=== PATIENT | female | born 1950 | race Caucasian/White ===

== ENCOUNTER → 2017-12-05 | Outpatient (CLI) | payer OTHER, MEDICARE, MEDICAID ==
[2014-09-10 08:54] VITALS: BMI 53.6
[~2017-12-05] MED LIST: ALB18R INH; ALPR3TAB PO; AZIT-1 PO; COL625PT PO; CYCL10TA29 PO; DONE10TA38 PO; FLUO40CA67 PO; GABA-549 PO; HYDR-317 PO; HYDR-385 PO; HYDR-4309 PO; LORA-629 PO; LORA-788 PO; LOSA100T67 PO; LOSA50TA72 PO; MEMA10TA18 PO; OMEP40CA48 PO; OXYGENHOME INH; SIMV-49 PO; SIMV5TAB60 PO; [UNRECOGNIZED DRUG - OTHER]
== END ==
LOC: LAB 10:41
PROVIDERS: ATTEND Nurse Practitioner Psychiatric/Mental Health
DX: E03.9 Hypothyroidism, unspecified (principal); I10 Essential (primary) hypertension
CPT/HCPCS: 36415; 82040; 82247; 82310; 82374; 82435; 82565; 82947; 84075; 84132; 84155; 84295; 84443; 84450; 84460; 84520; 85027

== ENCOUNTER 2018-02-15 00:52 | Observation (INO) | payer MEDICARE, OTHER, MEDICAID ==
[2014-09-10 08:54] VITALS: Ht 154.9 cm; Wt 118.8 kg
[~2018-02-15] VITALS: Ht 154.9 cm; Wt 118.8 kg
[2018-02-15] VITALS (9 sets, daily range): BP systolic 112–129; BP diastolic 52–104
--- NOTE | 2018-02-15 08:58 | EKG ---
FACILITY: [facility] PATIENT NAME: JAMES MOODY : [id number] MR: [id number] V: [id number] EXAM DATE: ORDERING PHYSICIAN: TONJA LLANOS TECHNOLOGIST: PARTHA Koenig Reason : PRE-OP Blood Pressure : / mmHG Vent. Rate : 084 BPM Atrial Rate : 084 BPM P-R Int : 150 ms QRS Dur : 070 ms QT Int : 380 ms P-R-T Axes : 054 051 052 degrees QTc Int : 449 ms Normal sinus rhythm Nonspecific T wave abnormality Abnormal ECG When compared with ECG of 09-SEP-2014 17:42, No significant change was found Confirmed by ANJEL LORENZ ([id number]) on 02/15/2018 7:01:29 PM Referred By: CANDI Confirmed By:ANJEL LORENZ
[2018-02-15] MEDS ORDERED: OXYMETAZOLINE SPRAY 15 ML BTL ONE (09:27)
[2018-02-15] MEDS ORDERED: NS(*) 0.9% 10 ML VIAL 10 ML ONE (09:27)
[2018-02-15] MEDS ORDERED: MIDAZOLAM 2 MG/2 ML VIAL IVP PRN (09:40)
[2018-02-15] MEDS ORDERED: LIDOCAINE/SOD BICARB 8.4% SYR ID ONE (09:40)
[2018-02-15] MEDS ORDERED: NORMOSOL R SOLN(*) 1000 ML BAG 1,000 ML IV PRN (09:40)
[2018-02-15] MEDS ORDERED: ROCURONIUM BROM 10 MG/ML 10 ML ONE (09:43)
[2018-02-15] MEDS ORDERED: ONDANSETRON 4 MG/2 ML VIAL ONE (09:43)
[2018-02-15] MEDS ORDERED: PROPOFOL EMUL(*) 10MG/ML 20 ML 20 ML ONE (09:43)
[2018-02-15] MEDS ORDERED: LIDOCAINE MPF 1% 5 ML VIAL ONE (09:43)
[2018-02-15] MEDS ORDERED: DEXAMETHASONE SOD PHOS 10MG/ML ONE (09:43)
[2018-02-15] MEDS ORDERED: HYDROmorphone HCL 2 MG/ML SDV ONE (09:44)
[2018-02-15] MEDS ORDERED: NS 0.9% 20 ML SDV 20 ML ONE (09:44)
[2018-02-15] MEDS ORDERED: SUGAMMADEX SOD 500 MG/5 ML SDV ONE (10:18)
[2018-02-15] MEDS ORDERED: KETAMINE HCL 200 MG/20 ML MDV ONE (10:18)
[2018-02-15] MEDS ORDERED: KETOROLAC 30 MG/ML VIAL ONE (10:45)
[2018-02-15] MEDS ORDERED: APAP/HYDROCODONE 325/5 TAB ONE (11:04)
--- NOTE | 2018-02-15 15:01 | RADIOLOGY IMAGING REPORT ---
FACILITY: [facility] PATIENT NAME: Vandana Boogie : 1950 MR: [id number] V: [id number] EXAM DATE: ORDERING PHYSICIAN: SENTHIL CHRISTOPHER TECHNOLOGIST: Location: Patient: Vandana Boogie : 1950 Visit/Account:[id number] Date of Sevice: 02/15/2018 Exam type: CHEST PA AND LAT History: Postop, shortness of breath Comparison: The 2015. Findings: The lungs are free of acute effusions infiltrates or edema. The cardiac silhouette is upper limits o f normal in size. There is a moderate hiatal hernia in the retrocardiac space. 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 No acute cardiopulmonary process seen Moderate hiatal hernia Report Dictated By: Steffanie Braun MD at 02/15/2018 2:54 PM Report E-Signed By: Steffanie Braun MD at 02/15/2018 2:57 PM WSN:[email or web address]
[2018-02-15] MEDS ORDERED: CYCLOBENZAPRINE HCL 10 MG TAB PO PRN (16:40)
[2018-02-15] MEDS: GABAPENTIN 300 MG CAP PO SCH ×2 (17:03→21:26)
[2018-02-15] MEDS: APAP/HYDROCODONE 325/5 TAB PO PRN (17:03)
--- NOTE | 2018-02-15 17:10 | History & Physical ---
History of Present Illness Chief Complaint hypoxia History of Present Illness She was admitted s/p vocal cord surgery. She has a history of THEE, HTN, GERD, and depression. She was found to be hypoxic after surgery. Dr. Nguyễn would like her admitted overnight to the hospitalist service to watch her oxygenation. History Problems: (1) Hypertension Status: Chronic (2) THEE (obstructive sleep apnea) Status: Chronic (3) GERD (gastroesophageal reflux disease) Status: Chronic (4) Depression Status: Chronic (5) Cognitive impairment Status: Chronic Home Meds Reported Medications Hydrocodone/Acetaminophen (Lortab 5-325 mg Tablet) 1 Each Tablet, 1-2 TAB PO Q4- 6H Y for PAIN 09/22/16 Oxygen (OXYGEN) Inha, 4 L INH HS, L 09/10/16 Omeprazole (OMEPRAZOLE) 40 Mg Capsule.dr, 1 CAP PO HS 09/10/16 Cyclobenzaprine Hcl (CYCLOBENZAPRINE HCL) 10 Mg Tablet, 1 TAB PO PRN 09/10/16 Albuterol Sulfate (VENTOLIN HFA) 18 Gm Inh, 1-2 PUFF INH PRN, INH 09/10/16 Losartan Potassium (LOSARTAN POTASSIUM) 100 Mg Tablet, 1 TAB PO QDAY 09/10/16 Fluoxetine Hcl (FLUOXETINE HCL) 40 Mg Capsule, 1 CAP PO QDAY 07/15/13 Donepezil Hcl (DONEPEZIL HCL) 10 Mg Tablet, 1 TAB PO DAILY 07/15/13 Memantine Hcl 10 Mg Tab (NAMENDA 10 MG TAB) 10 Mg Tablet, 1 TAB PO BID 07/15/13 Gabapentin (GABAPENTIN) 300 Mg Capsule, 1 TAB PO QID 07/15/13 Allergies: Coded Allergies: acetaminophen (Verified Allergy, Intermediate, vomiting, 09/19/14) aspirin (Verified Allergy, Intermediate, rectal bleeding, 09/19/14) oxycodone HCl (Verified Allergy, Intermediate, vomiting, 09/19/14) pregabalin (Verified Allergy, Unknown, 09/10/16) promethazine (Verified Allergy, Unknown, 09/10/16) fentanyl (Verified Adverse Reaction, Unknown, SWELLING, FACE AND HANDS, ) Uncoded Allergies: metal (Adverse Reaction, Intermediate, rash, 07/15/13) Patient History: FH: Alzheimers disease MOTHER FH: arthritis MOTHER FH: cataracts MOTHER FH: colon cancer FATHER FH: diabetes mellitus MOTHER FH: gastric ulcer FATHER FH: hypertension MOTHER GERD FATHER Valvular heart disease MOTHER Hx Smoking: Yes Smoking Status: Former Smoker When Quit Tobacco?: 3 YRS AGO Caffeine Intake: Tea, Soda Caffeine/Cups Per Day: 6 Hx Alcohol Use: Yes Hx Substance Use Disorder: No Social Drug Use: Never History of IV Drug Use: No Review of Systems All Systems Reviewed/Normal: Yes, Except as Noted Exam Vital Signs Vital Signs Date Time Temp Pulse Resp B/P (MAP) Pulse Ox O2 Delivery O2 Flow Rate FiO2 02/15/18 16:06 95 Nasal Cannula 2.0 02/15/18 15:50 98.6 89 16 112/76 (88) General Appearance: Alert, Awake, No Acute Distress, Afebrile Cardiovascular: Regular Rate and Rhythm Respiratory: No Respiratory Distress, Clear to Auscultation Psych: Alert & Oriented X3, Appropriate Mood & Affect Assessment and Plan Problems: (1) Hypoxia Status: Acute Assessment & Plan: She is requiring four liters of oxygen s/p vocal cord lesion excision. (2) Hypertension Status: Chronic Assessment & Plan: She is on chronic treatment with Losartan. This has been restarted with hold parameters. (3) THEE (obstructive sleep apnea) Status: Chronic Assessment & Plan: She does not require CPAP, however does where four liters of oxygen at night. (4) GERD (gastroesophageal reflux disease) Status: Chronic Assessment & Plan: She is on chronic treatment with omeprazole. She will be restarted on Protonix during admission. (5) Cognitive impairment Status: Chronic Assessment & Plan: She is on treatment with Donepezil and Namenda. (6) Leg pain Status: Chronic Assessment & Plan: She is on chronic treatment with gabapentin, Flexeril and Lortab. (7) Hyperlipemia Status: Chronic Assessment & Plan: She is on chronic treatment with simvastatin. (8) Depression Status: Chronic Assessment & Plan: She is on chronic treatment with fluoxetine. Venous Thromboembolism Antithrombotics Is Pt On Any Antithrombotics?: No Prophylaxis Tx Contraindicated Pharmacological Contraindicati: Surgical Contraindication Exam Sepsis Risk: No Definite Risk LETICIA AZEVEDOP Feb 15, 2018 17:10
[2018-02-15] MEDS: MEMANTINE HCL 10 MG TABLET PO SCH (21:00)
[2018-02-16 03:19] VITALS: BP 140/81
[2018-02-16] MEDS: APAP/HYDROCODONE 325/5 TAB PO PRN (06:12)
[2018-02-16 07:11] VITALS: BP 123/62
--- NOTE | 2018-02-16 07:49 | Hospitalist Depart ---
Discharge Summary Reason for Hosp/Final Diag: (1) Hypoxia Status: Acute Hospital Course & Plan: She was requiring four liters of oxygen s/p vocal cord lesion excision. However, now she is maintaining room air saturations between 89 -93%. She will resume her usual oxygen use at night upon discharge. (2) Hypertension Status: Chronic Hospital Course & Plan: She is on chronic treatment with Losartan. (3) THEE (obstructive sleep apnea) Status: Chronic Hospital Course & Plan: She does not require CPAP, however does where four liters of oxygen at night. (4) GERD (gastroesophageal reflux disease) Status: Chronic Hospital Course & Plan: She is on chronic treatment with omeprazole. (5) Cognitive impairment Status: Chronic Hospital Course & Plan: She is on treatment with Donepezil and Namenda. (6) Leg pain Status: Chronic Hospital Course & Plan: She is on chronic treatment with gabapentin, Flexeril and Lortab. (7) Hyperlipemia Status: Chronic Hospital Course & Plan: She is on chronic treatment with simvastatin. (8) Depression Status: Chronic Hospital Course & Plan: She is on chronic treatment with fluoxetine. Departure Latest Vital Signs Vital Signs 02/16/18 02/16/18 02/16/18 02/16/18 03:19 07:11 07:16 07:30 Temp 98.4 Pulse 74 Resp 16 B/P (MAP) 123/62 (82) Pulse Ox 90 O2 Delivery Nasal Cannula O2 Flow Rate 4.0 Weight (Pounds): 262 Condition: Improved Discharge: Home, Self Care Discharge Instructions Home Meds Reported Medications Hydrocodone/Acetaminophen (Lortab 5-325 mg Tablet) 1 Each Tablet, 1-2 TAB PO Q4- 6H Y for PAIN 09/22/16 Oxygen (OXYGEN) Inha, 4 L INH HS, L 09/10/16 Omeprazole (OMEPRAZOLE) 40 Mg Capsule.dr, 1 CAP PO HS 09/10/16 Cyclobenzaprine Hcl (CYCLOBENZAPRINE HCL) 10 Mg Tablet, 1 TAB PO PRN 09/10/16 Albuterol Sulfate (VENTOLIN HFA) 18 Gm Inh, 1-2 PUFF INH PRN, INH 09/10/16 Losartan Potassium (LOSARTAN POTASSIUM) 100 Mg Tablet, 1 TAB PO QDAY 09/10/16 Fluoxetine Hcl (FLUOXETINE HCL) 40 Mg Capsule, 1 CAP PO QDAY 07/15/13 Donepezil Hcl (DONEPEZIL HCL) 10 Mg Tablet, 1 TAB PO DAILY 07/15/13 Memantine Hcl 10 Mg Tab (NAMENDA 10 MG TAB) 10 Mg Tablet, 1 TAB PO BID 07/15/13 Gabapentin (GABAPENTIN) 300 Mg Capsule, 1 TAB PO QID 07/15/13 Diet: Regular Activity: As Tolerated Special Instructions: VOICE REST FOR ONE WEEK. YOU MAY TAKE YOU USUAL MEDICATIONS PRESCRIBED. FOLLOW UP IN ONE WEEK, February AT 1:[address] CHRISTOPHER'S OFFICE. PLEASE CHECK IN BY 1:30 PM SLEEP WITH HEAD OF BED ELEVATED. Copies to: SENTHIL CHRISTOPHER JR, MD Venous Thromboembolism Antithrombotics Is Pt On Any Antithrombotics?: No LETICIA AZEVEDO SOUND PRINTER Feb 16, 2018 07:49
[2018-02-16] MEDS: MEMANTINE HCL 10 MG TABLET PO SCH (08:30)
[2018-02-16] MEDS: GABAPENTIN 300 MG CAP PO SCH (08:30)
[2018-02-16] MEDS ORDERED: DONEPEZIL HCL 5 MG TAB PO SCH (09:00)
[2018-02-16] MEDS ORDERED: PANTOPRAZOLE SOD 40 MG TABEC PO SCH (09:00)
[2018-02-16] MEDS ORDERED: FLUoxetine HCL 20 MG CAP PO SCH (09:00)
[2018-02-16] MEDS ORDERED: LOSARTAN POTASSIUM 50 MG TAB PO SCH (09:00)
--- NOTE | 2018-02-16 11:58 | OPERATIVE REPORT 1 ---
EVENT DATE: February 15, 2018 SURGEON: Channing Nguyễn MD ANESTHESIOLOGIST: Marvin Hayward MD ANESTHESIA: General endotracheal. PROCEDURE Direct microlaryngoscopy with excision of left vocal fold lesion. PREOPERATIVE DIAGNOSIS 1. Left vocal fold lesion. 2. Dysphonia. POSTOPERATIVE DIAGNOSIS 1. Left vocal fold lesion. 2. Dysphonia. INDICATIONS Please refer to the preoperative note. PROCEDURE The patient was positively identified in the preoperative area. She was accompanied there by her . Risks were again explained, including but not limited to, dysphonia, bleeding, injury to the oral cavity, pharynx, larynx , and those associated with anesthesia. She acknowledged understanding of those risks. She was then brought back to the operative suite, laid supine on the operative table and anesthesia was administered. Once asleep, the patient was positioned, then prepped and draped in usual sterile fashion. The patient was edentulous, and I covered her upper gingiva with a 4x4. A direct laryngoscope was carefully introduced into the patient's oral cavity and advanced to the level of the larynx. The larynx was visualized, including the left vocal fold lesion. This was placed into suspension. Photo documentation was obtained with a telescope. The microscope was then brought into place. Small butterfly needle was introduced just inferior to the lesion, and injectable normal saline was infiltrated into the vocal fold to perform a hydrodissection. The lesion was then excised with micro instruments. Of note, this did not involve the vibratory margin. A pledget containing Afrin solution was then placed on the vocal fold for hemostasis. Postoperative photodocumentation was obtained with a telescope. The equipment was then removed from the patient. She was then turned to anesthesia for emergence. ESTIMATED BLOOD LOSS Negligible. COMPLICATIONS No complications. [facility]
[2018-02-17] MEDS ORDERED: INFLUENZA VIRUS VAC 0.5 ML SYR IM ONLY ONE (09:00)
== END 2018-02-16 08:50 | disposition home or self-care (01) ==
LOC: OR 00:52 → MED 16:00
PROVIDERS: ADMIT Otolaryngology; ATTEND Otolaryngology
DX: J38.3 Other diseases of vocal cords (principal); R06.02 Shortness of breath
CPT/HCPCS: 31540; 71046; 88305; 88342; 93005; 94667; 94668; A9270; G0378; J1100; J1170; J1885; J2001; J2405; J2704; J3490; J7050

== ENCOUNTER 2018-08-26 00:24 | Day surgery (SDC) | payer OTHER, MEDICARE, MEDICAID ==
[2014-09-10 08:54] VITALS: Ht 154.9 cm; Wt 117.0 kg
[~2018-08-26] VITALS: Ht 154.9 cm; Wt 117.0 kg
[~2018-08-26 00:24] MED LIST changes: +DIPH-464 PO; +GABA-503 PO; -HYDR-4309 PO; +HYDR-653 PO; -LOSA100T67 PO; +LOSA100T69 PO; -LOSA50TA72 PO; +LOSA50TA74 PO; +MAGN1TAB4 PO; +OXYM15MI14 ENA; +POLY17PO25 PO; +SIME80TA6 PO
[2018-08-26 08:30] VITALS: BP 142/91
[2018-08-26] MEDS ORDERED: PROPOFOL EMUL(*) 10MG/ML 20 ML 20 ML ONE ×2 (08:30→10:25)
[2018-08-26] MEDS ORDERED: NORMOSOL R SOLN(*) 1000 ML BAG 1,000 ML IV PRN (09:00)
[2018-08-26] MEDS ORDERED: LIDOCAINE/SOD BICARB 8.4% SYR ID ONE (09:00)
[2018-08-26 10:39] VITALS: BP 130/64
[2018-08-26 10:58] VITALS: BP 130/70
[2018-08-26 11:01] VITALS: BP 137/97
[2018-08-26 11:02] VITALS: BP 148/91
== END 2018-08-26 11:11 | disposition home or self-care (01) ==
LOC: OR 00:24
PROVIDERS: ATTEND Internal Medicine Gastroenterology
DX: K44.9 Diaphragmatic hernia without obstruction or gangrene (principal); K20.9 Esophagitis, unspecified; K29.70 Gastritis, unspecified, without bleeding
CPT/HCPCS: 43239; 43248; 88305; 88313; 88344; C1769; J2704

== ENCOUNTER → 2018-12-31 | Outpatient (CLI) | payer OTHER, MEDICARE, MEDICAID ==
[2014-09-10 08:54] VITALS: BMI 53.6
[~2018-12-31] MED LIST changes: -GABA-503 PO; +GABA-533 PO; -LOSA100T69 PO; +LOSA100T75 PO; -LOSA50TA74 PO; +LOSA50TA80 PO; -SIMV5TAB60 PO; +SIMV5TAB69 PO
[2018-12-31 09:11] LABS: PLATELET COUNT, AUTOMATED 237 K/uL (150-450)
== END ==
LOC: LAB 08:49
PROVIDERS: ATTEND Nurse Practitioner Psychiatric/Mental Health
DX: K31.84 Gastroparesis (principal); R09.02 Hypoxemia; E03.9 Hypothyroidism, unspecified; E78.5 Hyperlipidemia, unspecified; I10 Essential (primary) hypertension
CPT/HCPCS: 36415; 82040; 82247; 82310; 82374; 82435; 82465; 82565; 82947; 83718; 84075; 84132; 84155; 84295; 84443; 84450; 84460; 84478; 84520; 85025